=== PATIENT | female | born 1985 | race American Indian/Alaskan Native ===

== ENCOUNTER 2016-10-18 03:34 | Emergency (ER) | payer MEDICAID ==
[2016-10-18 03:44] VITALS: BP 156/114
[2016-10-18] MEDS ORDERED: TYLENOL PO ONE (03:45)
[2016-10-18] MEDS ORDERED: TYLENOL ONE (03:46)
[2016-10-18 04:09] LABS: Basophils % (Auto) 0.6 % (0.0-1.8); Eosinophils % (Auto) 2.3 % (0.0-4.3); Hematocrit 39.4 % (30.3-42.9); Hemoglobin 12.7 gm/dl (10.1-14.3); Mean Corpuscular HGB Conc 32 % (30-34); Mean Corpuscular Hemoglobin 25 pg (28-32); Mean Corpuscular Volume 78 fl (79-97); Platelet Count 306 K/mm3 (140-440); Red Blood Count 5.03 M/mm3 (3.65-5.03); Red Cell Distribution Width 17.7 % (13.2-15.2); White Blood Count 6.9 K/mm3 (4.5-11.0)
[2016-10-18 04:26] LABS: Alanine Aminotransferase 10 units/L (7-56); Albumin 4.4 g/dL (3.9-5); Albumin/Globulin Ratio 1.6 %; Alkaline Phosphatase 80 units/L (35-129); Anion Gap 21 mmol/L; Blood Urea Nitrogen 12 mg/dL (7-17); Calcium 9.4 mg/dL (8.4-10.2); Carbon Dioxide 24 mmol/L (22-30); Chloride 101.8 mmol/L (98-107); Glucose 111 mg/dL (65-100); Lipase 41 units/L (13-60); Potassium 4.3 mmol/L (3.6-5.0); Sodium 142 mmol/L (137-145); Total Protein 7.1 g/dL (6.3-8.2)
[2016-10-18 04:31] LABS: Bacteria,Urine 1+ /HPF (Negative); Bilirubin,Urine NEG (Negative); Blood,Urine MOD (Negative); Ketones,Urine NEG (Negative); Leukocyte Esterase,Urine SM (Negative); Mucus,Urine FEW /HPF; Nitrite,Urine NEG (Negative)
[2016-10-18] MEDS ORDERED: MORPHINE ONE (10:21)
[2016-10-18] MEDS ORDERED: ZOFRAN ONE (10:21)
--- NOTE | 2016-10-24 11:18 | ED Elopement Review ---
ED Pt Elopement review - Results review Lab results: Laboratory Tests 10/18/16 10/18/16 10/18/16 03:50 03:50 04:02 WBC 6.9 RBC 5.03 Hgb 12.7 Hct 39.4 MCV 78 L MCH 25 L MCHC 32 RDW 17.7 H Plt Count 306 Lymph % (Auto) 43.2 H [place] % (Auto) 5.8 Eos % (Auto) 2.3 Baso % (Auto) 0.6 Lymph # 3.0 [place] # 0.4 Eos # 0.2 Baso # 0.0 Seg Neutrophils % 48.1 Seg Neutrophils # 3.3 Sodium 142 Potassium 4.3 Chloride 101.8 Carbon Dioxide 24 Anion Gap 21 BUN 12 Creatinine 1.0 Estimated GFR > 60 BUN/Creatinine Ratio 12.00 Glucose 111 H Calcium 9.4 Total Bilirubin 0.30 AST 12 ALT 10 Alkaline Phosphatase 80 Total Protein 7.1 Albumin 4.4 Albumin/Globulin Ratio 1.6 Lipase 41 Urine Color Yellow Urine Turbidity Cloudy Urine pH 5.0 Ur Specific [place] 1.029 Urine Protein 30 mg/dl Urine Glucose (UA) Neg Urine Ketones Neg Urine Blood Mod Urine Nitrite Neg Urine Bilirubin Neg Urine Urobilinogen 2.0 Ur Leukocyte Esterase Sm Urine WBC (Auto) 14.0 H Urine RBC (Auto) 8.0 U Epithel Cells (Auto) 38.0 H Urine Bacteria (Auto) 1+ Calcium Oxalate Crystal 1+ Urine Mucus Few Urine HCG, Qual Negative - Call Back decision Pt Call Back Decision: No action required
== END 2016-10-18 07:58 | disposition left against medical advice (07) ==
LOC: ED 03:34
DX: R10.32 Left lower quadrant pain (principal); Z53.21 Procedure and treatment not carried out due to patient leaving prior to being seen by health care provider
CPT/HCPCS: 36415; 80053; 81001; 81025; 83690; 85025; J2270; J2405

== ENCOUNTER 2016-10-18 22:12 | Inpatient (IN) | payer MEDICAID, OTHER ==
[2016-10-18] MEDS ORDERED: DILAUDID ONE (22:22)
[2016-10-18] MEDS ORDERED: DILAUDID IV ONE (22:23)
[2016-10-18] MEDS ORDERED: NACL 0.9% 1000 ML 1,000 ML IV ONE (22:23)
--- NOTE | 2016-10-18 22:24 | Emergency Department Report ---
ED General Adult HPI - General Chief complaint: Abdominal Pain Stated complaint: ABD PAIN Time Seen by Provider: 10/18/16 22:19 Source: patient, EMS (verbal report received from EMS. ems notes not available at time of chart dictation), RN notes reviewed, old records reviewed Limitations: No Limitations - History of Present Illness Initial comments: This is a 31-year-old female. She is previously unknown to me. She presents to the ER with abdominal pain. Abdominal pain is epigastric, right upper quadrant, left upper quadrant. It is sharp. It increases with palpation. It decreases with rest. Patient admits to nausea and vomiting. Emesis is clear, nonbloody and nonbilious. Patient reports feeling constipated. Has a surgical history for . Denies irritative and obstructive urinary symptoms. There is no leg pain. There is no leg swelling. There is no chest pain. There is no shortness of breath. Does not take control tablets. No recent trips greater than 4 hours. No recent hospitalizations. The patient was initially quite distressed, was given 1 mg of hydromorphone, and this dramatically improved her pain. -: Gradual, hour(s) Location: abdomen Radiation: abdomen Quality: stabbing, aching Consistency: constant Improves with: medication Worsens with: movement Associated Symptoms: malaise, nausea/vomiting. denies: confusion, chest pain, cough - Related Data Home Medications Medication Instructions Recorded Confirmed Last Taken No Known Home Medications [No 10/18/16 10/18/16 Unknown Reported Home Medications] Allergies Allergy/AdvReac Type Severity Reaction Status Date / Time latex Allergy BLISTERS Verified 04/01/15 10:54 ED Review of Systems ROS: Stated complaint: ABD PAIN Other details as noted in HPI Constitutional: malaise Eyes: denies: vision change ENT: denies: epistaxis Respiratory: denies: cough Cardiovascular: denies: chest pain Gastrointestinal: abdominal pain, nausea Genitourinary: as per HPI Musculoskeletal: as per HPI Skin: as per HPI Neurological: as per HPI, weakness Psychiatric: anxiety ED Past Medical Hx - Past Medical History Hx Hypertension: No Hx Congestive Heart Failure: No Hx Diabetes: No Hx Deep Vein Thrombosis: No Hx Renal Disease: No Hx Sickle Cell Disease: No Hx Seizures: No Hx Kidney Stones: Yes (3 YRS AGO) Hx Asthma: No Hx COPD: No Hx HIV: No Additional medical history: hemorrhoids - Surgical History Additional Surgical History: hemorrhoids removed - Social History Smoking Status: Never Smoker Substance Use Type: None - Medications Home Medications: Home Medications Medication Instructions Recorded Confirmed Last Taken Type No Known Home Medications [No 10/18/16 10/18/16 Unknown History Reported Home Medications] ED Physical Exam - General General appearance: alert, in distress, obese - Head Head exam: Present: atraumatic, normocephalic - Eye Eye exam: Present: normal appearance, EOMI. Absent: nystagmus - ENT ENT exam: Present: normal exam, normal orophraynx, mucous membranes moist, normal external ear exam - Neck Neck exam: Present: normal inspection, full ROM. Absent: tenderness, meningismus - Respiratory Respiratory exam: Present: normal lung sounds bilaterally. Absent: respiratory distress, wheezes, rales, rhonchi, stridor, chest wall tenderness, accessory muscle use, decreased breath sounds, prolonged expiratory - Cardiovascular Cardiovascular Exam: Present: regular rate, normal rhythm, normal heart sounds. Absent: bradycardia, tachycardia, irregular rhythm, systolic murmur, diastolic murmur, rubs, gallop - GI/Abdominal GI/Abdominal exam: Present: soft, tenderness, normal bowel sounds. Absent: distended, guarding, rebound, rigid, pulsatile mass - Extremities Exam Extremities exam: Present: normal inspection, full ROM, normal capillary refill. Absent: tenderness, pedal edema, joint swelling, calf tenderness - Back Exam Back exam: Present: normal inspection, full ROM. Absent: tenderness, CVA tenderness (R), CVA tenderness (L), muscle spasm, paraspinal tenderness, vertebral tenderness - Neurological Exam Neurological exam: Present: alert, oriented X3, normal gait, other (Extraocular movements intact. Tongue midline. No facial droop. Facial sensation intact to light touch in the V1, V2, V3 distribution bilaterally. 5 and 5 strength in 4 extremities.. Sensation is intact to light touch in 4 extremities.). Absent : motor sensory deficit - Psychiatric Psychiatric exam: Present: anxious - Skin Skin exam: Present: warm, dry, intact, normal color. Absent: rash ED Course Vital Signs 10/18/16 10/18/16 10/18/16 22:14 22:20 22:23 Temperature 98.9 F Pulse Rate 103 H 86 96 H Respiratory 20 13 20 Rate Blood Pressure 178/101 178/101 Blood Pressure [Right] O2 Sat by Pulse 100 100 100 Oximetry 10/18/16 10/18/16 10/18/16 22:30 22:40 22:54 Temperature Pulse Rate 86 80 69 Respiratory 9 L 16 12 Rate Blood Pressure 146/97 178/101 141/82 Blood Pressure [Right] O2 Sat by Pulse 100 100 100 Oximetry 10/18/16 10/18/16 10/18/16 23:00 23:10 23:20 Temperature Pulse Rate 61 62 96 H Respiratory 18 16 15 Rate Blood Pressure 138/78 138/78 133/76 Blood Pressure [Right] O2 Sat by Pulse 98 98 100 Oximetry 10/18/16 10/19/16 10/19/16 23:30 00:48 01:59 Temperature Pulse Rate 53 L 64 89 Respiratory 18 14 12 Rate Blood Pressure 137/77 Blood Pressure 131/76 135/89 [Right] O2 Sat by Pulse 99 100 100 Oximetry 10/19/16 02:50 Temperature Pulse Rate 65 Respiratory 12 Rate Blood Pressure Blood Pressure 137/89 [Right] O2 Sat by Pulse 100 Oximetry - Reevaluation(s) Reevaluation #1: 10/18/16 23:24 Differential diagnosis: GERD, gastritis, pancreatitis, perforated viscus, urinary tract infection, pneumonia, constipation Assessment and plan: 31-year-old female with upper abdominal pain. Initially quite distress, improved with hydromorphone. Laboratory studies are unremarkable, very mild hypokalemia appreciated, patient walking with a steady gait, tolerating liquid feeds. My bedside ultrasound does not demonstrate any obvious biliary abnormality. CT scan of the abdomen and pelvis is pending. Patient reports she is not . X-ray of the chest and x-rays no subdiaphragmatic free air. There are no pulmonary embolus or DVT risk factors, the patient is low risk by well's criteria, and she is perc negative Reevaluation #2: 10/19/16 01:47 CT scan is reviewed. No obvious etiology of patient's abdominal pain is noted. The patient had a benign gynecologic examination. There is no adnexal tenderness, no lower abdominal tenderness, and no uterine tenderness. During the gynecologic examination, I am escorted by nurse ALLYN GUADALUPE. Therefore don't think the patient's pain is coming from her intrauterine device. The case is discussed with the general surgeon on-call, Dr. Bejarano, who recommended a lactic acid which is ordered. 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 Urinalysis is equivocal. Given her persistent tenderness, requirements for multiple doses of IV pain medication, hypokalemia, hypomagnesemia, I will admit the patient for serial abdominal exams, pain control, antibiotics, and further inpatient evaluation and management. The case is discussed with the Hospital physician, Dr. Royal, who accepts the patient to her service. ED Medical Decision Making - Lab Data Result diagrams: 10/18/16 22:39 10/18/16 22:39 Vital Signs 10/18/16 22:23 Temperature 98.9 F Pulse Rate 96 H Respiratory 20 Rate Blood Pressure 178/101 O2 Sat by Pulse 100 Oximetry Lab Results 10/18/16 10/18/16 10/18/16 Range/Units 22:39 22:39 22:39 WBC 6.3 (4.5-11.0) K/mm3 RBC 4.52 (3.65-5.03) M/mm3 Hgb 11.5 (10.1-14.3) gm/dl Hct 35.1 (30.3-42.9) % MCV 78 L (79-97) fl MCH 25 L (28-32) pg MCHC 33 (30-34) % RDW 17.6 H (13.2-15.2) % Plt Count 264 (140-440) K/mm3 Lymph % (Auto) 29.9 (13.4-35.0) % Andrew % (Auto) 5.7 (0.0-7.3) % Eos % (Auto) 1.0 (0.0-4.3) % Baso % (Auto) 0.4 (0.0-1.8) % Lymph # 1.9 (1.2-5.4) K/mm3 Andrew # 0.4 (0.0-0.8) K/mm3 Eos # 0.1 (0.0-0.4) K/mm3 Baso # 0.0 (0.0-0.1) K/mm3 Seg Neutrophils % 63.0 (40.0-70.0) % Seg Neutrophils # 3.9 (1.8-7.7) K/mm3 Sodium 143 (137-145) mmol/L Potassium 3.4 L D (3.6-5.0) mmol/L Chloride 104.2 (98-107) mmol/L Carbon Dioxide 24 (22-30) mmol/L Anion Gap 18 mmol/L BUN 12 (7-17) mg/dL Creatinine 1.0 (0.7-1.2) mg/dL Estimated GFR > 60 ml/min BUN/Creatinine Ratio 12.00 % Glucose 95 (65-100) mg/dL Calcium 8.6 (8.4-10.2) mg/dL Total Bilirubin 0.50 (0.1-1.2) mg/dL AST 10 (5-40) units/L ALT 9 (7-56) units/L Alkaline Phosphatase 61 (35-129) units/L Total Protein 6.5 (6.3-8.2) g/dL Albumin 3.9 (3.9-5) g/dL Albumin/Globulin Ratio 1.5 % Lipase 44 (13-60) units/L HCG, Qual Negative (Negative) Urine Bilirubin (Negative) Urine RBC (Auto) (0.0-6.0) /HPF U Epithel Cells (Auto) (0-13.0) /HPF /06/05 Range/Units 22:53 WBC (4.5-11.0) K/mm3 RBC (3.65-5.03) M/mm3 Hgb (10.1-14.3) gm/dl Hct (30.3-42.9) % MCV (79-97) fl MCH (28-32) pg MCHC (30-34) % RDW (13.2-15.2) % Plt Count (140-440) K/mm3 Lymph % (Auto) (13.4-35.0) % Andrew % (Auto) (0.0-7.3) % Eos % (Auto) (0.0-4.3) % Baso % (Auto) (0.0-1.8) % Lymph # (1.2-5.4) K/mm3 Andrew # (0.0-0.8) K/mm3 Eos # (0.0-0.4) K/mm3 Baso # (0.0-0.1) K/mm3 Seg Neutrophils % (40.0-70.0) % Seg Neutrophils # (1.8-7.7) K/mm3 Sodium (137-145) mmol/L Potassium (3.6-5.0) mmol/L Chloride (98-107) mmol/L Carbon Dioxide (22-30) mmol/L Anion Gap mmol/L BUN (7-17) mg/dL Creatinine (0.7-1.2) mg/dL Estimated GFR ml/min BUN/Creatinine Ratio % Glucose (65-100) mg/dL Calcium (8.4-10.2) mg/dL Total Bilirubin (0.1-1.2) mg/dL AST (5-40) units/L ALT (7-56) units/L Alkaline Phosphatase (35-129) units/L Total Protein (6.3-8.2) g/dL Albumin (3.9-5) g/dL Albumin/Globulin Ratio % Lipase (13-60) units/L HCG, Qual (Negative) Urine Bilirubin Neg (Negative) Urine RBC (Auto) 4.0 (0.0-6.0) /HPF U Epithel Cells (Auto) 7.0 (0-13.0) /HPF - Radiology Data Radiology results: report reviewed, image reviewed interpreted by me: Portable x-ray the chest is negative for free air. Critical care attestation.: If time is entered above; I have spent that time in minutes in the direct care of this critically ill patient, excluding procedure time. ED Disposition Clinical Impression: Abdominal pain, Hypomagnesemia, Hypokalemia Disposition: OP ADMITTED IP TO THIS HOSP Is pt being admited?: Yes Condition: Good
[2016-10-18 22:53] LABS: Basophils % (Auto) 0.4 % (0.0-1.8); Hematocrit 35.1 % (30.3-42.9); Hemoglobin 11.5 gm/dl (10.1-14.3); Mean Corpuscular HGB Conc 33 % (30-34); Mean Corpuscular Volume 78 fl (79-97); Platelet Count 264 K/mm3 (140-440); Red Blood Count 4.52 M/mm3 (3.65-5.03); Red Cell Distribution Width 17.6 % (13.2-15.2); White Blood Count 6.3 K/mm3 (4.5-11.0)
[2016-10-18 22:54] LABS: Mean Corpuscular Hemoglobin 25 pg (28-32)
[2016-10-18 23:14] LABS: Alanine Aminotransferase 9 units/L (7-56); Albumin 3.9 g/dL (3.9-5); Albumin/Globulin Ratio 1.5 %; Alkaline Phosphatase 61 units/L (35-129); Anion Gap 18 mmol/L; Blood Urea Nitrogen 12 mg/dL (7-17); Calcium 8.6 mg/dL (8.4-10.2); Carbon Dioxide 24 mmol/L (22-30); Chloride 104.2 mmol/L (98-107); Glucose 95 mg/dL (65-100); Lipase 44 units/L (13-60); Potassium 3.4 mmol/L (3.6-5.0); Sodium 143 mmol/L (137-145); Total Protein 6.5 g/dL (6.3-8.2)
[2016-10-18] MEDS ORDERED: NACL ONE (23:16)
[2016-10-18] MEDS ORDERED: K-DUR PO ONE (23:21)
[2016-10-18 23:24] LABS: Bilirubin,Urine NEG (Negative); Blood,Urine NEG (Negative); Ketones,Urine TR mg/dL (Negative); Leukocyte Esterase,Urine SM (Negative); Mucus,Urine 1+ /HPF; Nitrite,Urine NEG (Negative); Uric Acid Crystals,Urine 1+
[2016-10-19] MEDS ORDERED: MAGNESIUM SULFATE 2GM/50ML 2 GM/50 ML BAG IV ONE (00:35)
--- NOTE | 2016-10-19 00:48 | Cat Scan Report ---
FINAL REPORT EXAM: CT ABDOMEN PELVIS W CON HISTORY: abdominal pain EPIGASTRIC TECHNIQUE: CT images are acquired through the Abdomen and Pelvis following intravenous administration of contrast. Transaxial, coronal and sagittal reformations are provided. PRIORS: None FINDINGS: Partially visualized intrathoracic contents are unremarkable. The liver, gallbladder, pancreas, spleen, and adrenal glands are normal. Kidneys show no worrisome lesions, hydronephrosis, or calculi. Urinary bladder is unremarkable Small and large bowel are normal in caliber. Appendix is normal. There is fluid within the ascending and transverse colon. No pericolonic stranding or edema. No free air, free fluid, or lymphadenopathy identified. Aorta is normal in course and caliber. Anteverted uterus containing a dense contraceptive device, which extends to the edge of the myometrium/serosa on axial series 3, image 154. Superficial soft tissues are unremarkable. No acute or aggressive appearing skeletal findings. IMPRESSION: Fluid in the colon may be infectious or inflammatory in etiology. No pneumoperitoneum or focal fluid collection to suggest abscess formation. A component of patient's IUD extends through the myometrium to the edge of the uterus, which may be clinically significant in the setting of pelvic pain and/or at the time of removal.
[2016-10-19] MEDS ORDERED: ZOSYN/NS 4.5GM/100ML 4.5 GM/100 ML VIAL IV ONE (01:46)
[2016-10-19] MEDS ORDERED: DILAUDID IV ONE (01:46)
--- NOTE | 2016-10-19 02:46 | Admit Criteria Form ---
Admission Criteria Documentation: ABDOMINAL PAIN Clinical Indications for Admission to Inpatient Care (Place 'X' for any and all applicable criteria): Admission is indicated for ANY ONE of the following(1)(2)(3)(4)(5): [ X]I. Inpatient admission required rather than observation care (Also use Abdominal Pain: Observation Care, as appropriate) because of ANY ONE of the following: [ ]a) Severe pain requiring acute inpatient management [X ]b) Identification of etiology/finding that requires inpatient care (eg, aortic dissection, free air) [ ]c) Absent bowel sounds with complete ileus(6) [ ]d) Suspected toxic megacolon [ ]e) Severe electrolyte abnormalities requiring inpatient care [ ]f) High fever or infection requiring inpatient admission as indicated by ANY ONE of following(7)(8): [ ] i) Appropriate outpatient or observational care antimicrobial treatment unavailable, not effective, or not feasible [ ] ii) Documented bacteremia [ ] iii) Temperature > 104.9 degrees F (oral) [ ] iv) T >103.1 F (oral) or < 96.8 F(rectal) that does not respond to all emergency treatment measures [ ]g) Signs of intestinal obstruction [B] [ ]h) Hemodynamic instability [ ]i) IV fluid to replace significant ongoing losses (greater than 3 L/m2 per day) (12)(13) [ ]j) Percutaneous or open drainage (eg, abscess, biliary tract ) procedures [ ]k) Parenteral nutrition regimen that must be implemented on inpatient basis [ ]l) Other condition,treatment or monitoring requiring inpatient admission. [ ]II. Peritoneal signs present [ ]III. Surgery needed that cannot be performed on an ambulatory basis. [ ]IV. Evaluation requires patient to not eat or drink for extended period ( eg, more than 24 hours). [ ]V. Contraindications and/or Inappropriate clinical situations for Observational Care in patients with abdominal pain, when ANY ONE of the following is required: [ ]a) Thorough evaluation is required to prevent catastrophic events due to delays in diagnosing (e.g.Mesenteric ischemia) 1,3 [ ]b) Patient with severe pathology or with chronic symptoms unlikely to improve in the ED stay (3) [ ]. General contraindications and/or Inappropriate clinical situations for Observational Care in patients with abdominal pain, when ANY ONE of the following is required: [ ]a) Prediction of prolongation of LOS based on ANY ONE of the following may be considered as a contraindication for observational care 2, 3, 4, 5, 6, 7, 8, 9, 10, 11 [ ]i) Age > 65 yrs. [ ]ii) Patient arriving by ambulance [ ]iii) Patient with high acuity [ ]iv) Patient requiring vital sign monitoring [ ]v) Patient on IV medication [ ]b) Systolic blood pressures 180mmHg 3,12 [ ]c) Patient with altered mental status including delirium and other alteration of consciousness, (3) [ ]d) Patient whose discharge disposition will be to a usp home or rehabilitation home should not be managed in Emergency Department Observation Unit. CMS rule requires 3 days hospital stay before such placement.3,13 [ ]e) Patient with failure to thrive due to broad array of etiologies 3,16,17 [ ]f) Inability to ambulate 3,14 Extended stay beyond goal length of stay may be needed for(2)(3): [ ]a) Persistent abdominal pain with suspected intra-abdominal process [ ]b) Diagnosed condition requiring continued stay (e.g., pancreatitis, complicated diverticulitis) [ ]c) Surgery (e.g., colectomy) The original [facility] content created by Alma Johns has been revised. The portions of the content which have been revised are identified through the use of italic text or in bold, and [facility] has neither reviewed nor approved the modified material.All other unmodified content is copyright [facility] [employer]. Please see references footnoted in the original [facility] edition 2016 Admission Criteria Met: Yes
[2016-10-19] MEDS ORDERED: AMBIEN PO PRN (04:50)
[2016-10-19] MEDS ORDERED: MILK OF MAGNESIA PO PRN (04:50)
[2016-10-19] MEDS ORDERED: ZOFRAN IV PRN (04:50)
[2016-10-19] MEDS ORDERED: TYLENOL PO PRN (04:50)
[2016-10-19] MEDS ORDERED: NORCO 5/325 PO PRN (04:50)
[2016-10-19] MEDS ORDERED: DULCOLAX PR PRN (04:50)
--- NOTE | 2016-10-19 04:59 | History and Physical Report ---
History of Present Illness Date of examination: 10/19/16 Date of admission: 10/19/16 01:50 Chief complaint: Abdominal pain with nausea and vomiting History of present illness: This is a 31-year-old female presents to the ER with abdominal pain after eating a burger at [employer]. Abdominal pain is epigastric, right upper quadrant, left upper quadrant. It is sharp. It increases with palpation. It decreases with rest. Patient admits to nausea and vomiting. Emesis is clear, nonbloody and nonbilious. Patient reports feeling constipated. Has a surgical history for . Denies irritative and obstructive urinary symptoms. Past medical History: None. IUD placement one year ago. Past surgical History: s/p Social History: Lives with family, denies any smoking, drinking and elicit drug abuse. Family History: None Review of System: Constitutional: no fever, no chills, no weight loss Ears, eyes, nose, mouth and throat: no nasal congestion, no nasal discharge, no sinus pressure, no vision change, no red eye. Neck: No neck pain or rigidity. Cardiovascular: No chest pain, no orthopnea, no palpitations, no leg swelling Respiratory: No shortness of breath, no cough, no congestion, no wheezing Gastrointestinal: + abdominal pain, nausea and vomiting Genitourinary : no dysuria, no hematuria Musculoskeletal: no joint swelling or muscle ache Integumentary: no rash, no pruritis Neurological: no parathesias, no numbness, no tingling Endocrine: no cold or heat intolerance, no polyuria or polydipsia Hematologic/Lymphatic: no easy bruising, no easy bleeding, no gland swelling Allergic/Immunologic: no urticaria, no angioedema. Medications and Allergies Allergies Allergy/AdvReac Type Severity Reaction Status Date / Time latex Allergy BLISTERS Verified 04/01/15 10:54 Home Medications Medication Instructions Recorded Confirmed Last Taken Type No Known Home Medications [No 10/18/16 10/18/16 Unknown History Reported Home Medications] Active Meds: Active Medications Acetaminophen (Tylenol) 650 mg PO Q4H PRN PRN Reason: Pain MILD(1-3)/Fever >100.5/SHIN Acetaminophen/Hydrocodone Bitart (Rodanthe 5/325) 2 each PO Q6H PRN PRN Reason: Pain, Moderate (4-6) Bisacodyl (Dulcolax) 10 mg ME QDAY PRN PRN Reason: Constipation unrelieved by MOM Docusate Sodium (Colace) 100 mg PO BID WALDEMAR Famotidine (Pepcid) 20 mg PO BID WALDEMAR Sodium Chloride (Nacl 0.9% 1000 Ml) 1,000 mls @ 100 mls/hr IV DIRECT WALDEMAR Levofloxacin/Dextrose (Levaquin 750mg/150ml) 750 mg in 150 mls @ 100 mls/hr IV Q24HR WALDEMAR PRN Reason: Protocol Magnesium Hydroxide (Milk Of Magnesia) 30 ml PO Q4H PRN PRN Reason: Constipation Metoclopramide HCl (Reglan) 10 mg IV Q6H PRN PRN Reason: Nausea And Vomiting Morphine Sulfate (Morphine) 2 mg IV Q4H PRN PRN Reason: Pain, Moderate (4-6) Ondansetron HCl (Zofran) 4 mg IV Q8H PRN PRN Reason: N/V unrelieved by Reglan Zolpidem Tartrate (Ambien) 5 mg PO QHS PRN PRN Reason: Insomnia Exam - Physical Exam Narrative exam: GENERAL: This is well-developed well-nourished lying on bed appeared to be in no discomfort. HEENT: Normocephalic. Atraumatic. Extraocular motions are intact. No conjunctival congestion or icterus. Patient has moist mucous membranes. External auditory canal and nares patent bilaterally. NECK: Supple. Trachea midline. No JVD, thyromagaly or lymphadenopathy. CHEST/LUNGS: Clear to auscultated bilaterally. There is no respiratory distress noted, breathing nonlabored. No wheezes crackles or rhonchi. HEART/CARDIOVASCULAR: Regular in rate and rhythm. PMI at the apex. There is no gallop rub or murmur. ABDOMEN: Abdomen is soft, nontender. Patient has normal bowel sounds. There is no abdominal distention. No organomagaly or rigidity. SKIN: There is no rash, no erythrema. There is no diaphoresis. Warm and dry. NEUROLOGY: The patient is awake, alert, and oriented. The patient is cooperative. The patient has normal speech. No focal motor deficit. MUSCULOSKELETAL: No joint effusion or tenderness. Muscle strength equal bilaterally. No muscle wasting. EXTRIMITY: No edema, cyanosis or clubbing. PSYCH: No depression or anxiety noted. Cooperative. - Constitutional Vitals: Temp Pulse Resp BP Pulse Ox 98.9 F 65 12 137/89 100 10/18/16 22:23 10/19/16 02:50 10/19/16 02:50 10/19/16 02:50 10/19/16 02:50 Results - Labs CBC & Chem 7: 10/18/16 22:39 10/19/16 06:22 - Imaging and Cardiology CT scan - abdomen: report reviewed Assessment and Plan Acute abdominal pain - Likely due to gastroenteritis or colitis - Placed on Levaquin -Will treat her with as needed nausea and pain medicine Nausea and vomiting - Likely from gastroenteritis - treat with when necessary Zofran Hypokalemia - Likely due to GI loss - Replaced in the ER we'll continue to monitor DVT prophylaxis - Placed on Lovenox It took me about 41 minutes for initial care of this patient including history and physical, reviewing initial lab results and ER documents, placing admission orders, bedside counseling and coordination of care.
[2016-10-19] MEDS: NACL 0.9% 1000 ML 1,000 ML IV SCH ×2 (05:26→17:14)
[2016-10-19] MEDS: REGLAN IV PRN ×2 (05:27→17:14)
[2016-10-19] MEDS: MORPHINE IV PRN ×2 (05:27→17:14)
[2016-10-19 07:08] LABS: Anion Gap 15 mmol/L; BUN/Creatinine Ratio 12.22; Blood Urea Nitrogen 11 mg/dL (7-17); Calcium 8.4 mg/dL (8.4-10.2); Carbon Dioxide 25 mmol/L (22-30); Chloride 108.2 mmol/L (98-107); Glucose 115 mg/dL (65-100); Potassium 3.9 mmol/L (3.6-5.0); Sodium 144 mmol/L (137-145)
[2016-10-19] MEDS ORDERED: MAGNESIUM SULFATE IV ONE (08:33)
[2016-10-19] MEDS ORDERED: MAGNESIUM SULFATE 1 GM in NACL 0.9% 50 ML IV ONE (09:00)
[2016-10-19] MEDS: LEVAQUIN 750MG/150ML 750 MG/150 ML BAG IV SCH (09:06)
[2016-10-19] MEDS: COLACE PO SCH ×2 (09:06→22:17)
[2016-10-19] MEDS: PEPCID PO SCH ×2 (09:06→22:17)
--- NOTE | 2016-10-19 09:22 | Event Note ---
Date: 10/19/16 This is apparently a patient of Dr. Arielle Castellanos who is credential here. Please contact her office and notify her of the consult thank you
--- NOTE | 2016-10-19 09:36 | XRay Report ---
PORTABLE CHEST INDICATION: Abdominal pain. Evaluate for free air. COMPARISON: None similar. FINDINGS: Portable, frontal chest radiograph demonstrates normal cardiomediastinal silhouette. Slightly crowded markings centrally. Lungs otherwise clear without pleural effusions or CHF. EKG leads. Unremarkable bones. CONCLUSION: No acute disease. Thank you for the opportunity to participate in this patient's care.
--- NOTE | 2016-10-19 10:02 | Progress Note ---
Assessment and Plan Assessment and plan: Patient is 31-year-old woman who presented with epigastric abdominal pain with nausea and vomiting. CT abdomen and pelvis with contrast shows fluid in the colon may be infectious or inflammatory in etiology, no abscess formation. A component of the patient's IUD extends through the myometrium to the areas of the uterus, which may be clinically significant in the settings of pelvic pain and/or at the time of removal. Chest x-ray negative for acute findings. -Epigastric abdominal pain with nausea and vomiting suspect component of gastritis, treated as colitis (?epigastric area) with antibiotics in ED: Add PPI , downgrade diet to clears, consulted GI -IUD through myometrium: Consulted WELDER -Electrolyte imbalances, hypokalemia and hypomagnesemia, replaced: Recheck a.m. -UTI: Order urine culture, antibiotics -Morbid obesity BMI 40.7: Lifestyle modification discussed -DVT prophylaxis: SCDs and added subcutaneous heparin History Interval history: Patient seen and examined. Follow up on abdominal pain which is still present. Overnight she did have nausea vomiting but she tolerated her breakfast this morning. Overnight uneventful. No cp, sob, or severe headaches. Imaging, old records, testing, labs, nursing notes reviewed. Hospitalist Physical - Physical exam Narrative exam: GEN: WDWN, NAD, AWAKE, ALERT, ORIENTATED 3 BMI 40.7 HEENT: NCAT, PERRL, EOMI, OP CLEAR NECK: SUPPLE, NO THYROMEGALY, NO JVD, NO LAD CVS: RRR, NORMAL S1S2 LUNGS/CHEST: CTA B, NORMAL CHEST EXPANSION B, GOOD AIR ENTRY B ABD: SOFT, EPIGASTRIC TENDERNESS, NONDISTENDED GBS, NO REBOUND OR GUARDING EXT/SKIN: NO SIGNIFICANT EDEMA OR RASH MSK: FROM X 4 EXTREMITIES NEURO: CN 2-12 GROSSLY INTACT, NO FOCAL DEFICITS PSY: CALM - Constitutional Vitals: Temp Pulse Resp BP Pulse Ox 98 F 78 16 132/82 97 10/19/16 07:49 10/19/16 07:49 10/19/16 07:49 10/19/16 07:49 10/19/16 07:49 Results - Labs CBC & Chem 7: 10/18/16 22:39 10/19/16 06:22 Labs: Laboratory Last Values WBC 6.3 K/mm3 (4.5-11.0) 10/18/16 22:39 RBC 4.52 M/mm3 (3.65-5.03) 10/18/16 22:39 Hgb 11.5 gm/dl (10.1-14.3) 10/18/16 22:39 Hct 35.1 % (30.3-42.9) 10/18/16 22:39 MCV 78 fl (79-97) L 10/18/16 22:39 MCH 25 pg (28-32) L 10/18/16 22:39 MCHC 33 % (30-34) 10/18/16 22:39 RDW 17.6 % (13.2-15.2) H 10/18/16 22:39 Plt Count 264 K/mm3 (140-440) 10/18/16 22:39 Lymph % (Auto) 29.9 % (13.4-35.0) 10/18/16 22:39 [place] % (Auto) 5.7 % (0.0-7.3) 10/18/16 22:39 Eos % (Auto) 1.0 % (0.0-4.3) 10/18/16 22:39 Baso % (Auto) 0.4 % (0.0-1.8) 10/18/16 22:39 Lymph # 1.9 K/mm3 (1.2-5.4) 10/18/16 22:39 [place] # 0.4 K/mm3 (0.0-0.8) 10/18/16 22:39 Eos # 0.1 K/mm3 (0.0-0.4) 10/18/16 22:39 Baso # 0.0 K/mm3 (0.0-0.1) 10/18/16 22:39 Seg Neutrophils % 63.0 % (40.0-70.0) 10/18/16 22:39 Seg Neutrophils # 3.9 K/mm3 (1.8-7.7) 10/18/16 22:39 Sodium 144 mmol/L (137-145) 10/19/16 06:22 Potassium 3.9 mmol/L (3.6-5.0) 10/19/16 06:22 Chloride 108.2 mmol/L (98-107) H 10/19/16 06:22 Carbon Dioxide 25 mmol/L (22-30) 10/19/16 06:22 Anion Gap 15 mmol/L 10/19/16 06:22 BUN 11 mg/dL (7-17) 10/19/16 06:22 Creatinine 0.9 mg/dL (0.7-1.2) 10/19/16 06:22 Estimated GFR > 60 ml/min 10/19/16 06:22 BUN/Creatinine Ratio 12.22 % 10/19/16 06:22 Glucose 115 mg/dL (65-100) H 10/19/16 06:22 Lactic Acid 0.90 mmol/L (0.7-2.0) 10/19/16 01:48 Calcium 8.4 mg/dL (8.4-10.2) 10/19/16 06:22 Magnesium 1.50 mg/dL (1.7-2.3) L 10/18/16 23:45 Total Bilirubin 0.50 mg/dL (0.1-1.2) 10/18/16 22:39 AST 10 units/L (5-40) 10/18/16 22:39 ALT 9 units/L (7-56) 10/18/16 22:39 Alkaline Phosphatase 61 units/L (35-129) 10/18/16 22:39 Total Protein 6.5 g/dL (6.3-8.2) 10/18/16 22:39 Albumin 3.9 g/dL (3.9-5) 10/18/16 22:39 Albumin/Globulin Ratio 1.5 % 10/18/16 22:39 Lipase 44 units/L (13-60) 10/18/16 22:39 HCG, Qual Negative (Negative) 10/18/16 22:39 Urine Color Yellow (Yellow) 10/18/16 22:53 Urine Turbidity Clear (Clear) 10/18/16 22:53 Urine pH 5.0 (5.0-7.0) 10/18/16 22:53 Ur Specific [place] 1.031 (1.003-1.030) H 10/18/16 22:53 Urine Protein 30 mg/dl mg/dL (Negative) 10/18/16 22:53 Urine Glucose (UA) Neg mg/dL (Negative) 10/18/16 22:53 Urine Ketones Tr mg/dL (Negative) 10/18/16 22:53 Urine Blood Neg (Negative) 10/18/16 22:53 Urine Nitrite Neg (Negative) 10/18/16 22:53 Urine Bilirubin Neg (Negative) 10/18/16 22:53 Urine Urobilinogen 2.0 mg/dL (<2.0) 10/18/16 22:53 Ur Leukocyte Esterase Sm (Negative) 10/18/16 22:53 Urine WBC (Auto) 21.0 /HPF (0.0-6.0) H 10/18/16 22:53 Urine RBC (Auto) 4.0 /HPF (0.0-6.0) 10/18/16 22:53 U Epithel Cells (Auto) 7.0 /HPF (0-13.0) 10/18/16 22:53 Uric Acid Crystals 1+ 10/18/16 22:53 Urine Mucus 1+ /HPF 10/18/16 22:53
--- NOTE | 2016-10-19 11:42 | Gastroenterology Consultation ---
History of Present Illness - Reason for Consult Consult date: 10/19/16 Requesting physician: AVIVA BRAVO - History of Present Illness Patient is a 31 y/o female admitted with abd pain, N/V, and diarrhea x 2 days. She reports symptoms started after eating at [employer] on . Pt c/o epigastric pain with nausea w/vomiting today. Reports no BM today. Denies vomiting, hematemesis, melena, fever, chills, night sweats, or hematochezia. No NSAID or recent abx use. No personal or family hx of IBD. No significant PMH. Past History Past Surgical History: , Other (IUD placement) Social history: denies: smoking, alcohol abuse Medications and Allergies Allergies Allergy/AdvReac Type Severity Reaction Status Date / Time latex Allergy BLISTERS Verified 04/01/15 10:54 Home Medications Medication Instructions Recorded Confirmed Last Taken Type No Known Home Medications [No 10/18/16 10/18/16 Unknown History Reported Home Medications] Active Meds: Active Medications Acetaminophen (Tylenol) 650 mg PO Q4H PRN PRN Reason: Pain MILD(1-3)/Fever >100.5/SHIN Acetaminophen/Hydrocodone Bitart ([place] 5/325) 2 each PO Q6H PRN PRN Reason: Pain, Moderate (4-6) Last Admin: 10/19/16 10:49 Dose: 2 each Bisacodyl (Dulcolax) 10 mg WA QDAY PRN PRN Reason: Constipation unrelieved by MOM Docusate Sodium (Colace) 100 mg PO BID [facility] Last Admin: 10/19/16 09:06 Dose: 100 mg Famotidine (Pepcid) 20 mg PO BID [facility] Last Admin: 10/19/16 09:06 Dose: 20 mg Heparin Sodium (Porcine) (Heparin) 5,000 unit SUB-Q Q12HR [facility] Sodium Chloride (Nacl 0.9% 1000 Ml) 1,000 mls @ 100 mls/hr IV DIRECT [facility] Last Admin: 10/19/16 05:26 Dose: 100 mls/hr Levofloxacin/Dextrose (Levaquin 750mg/150ml) 750 mg in 150 mls @ 100 mls/hr IV Q24HR WALDEMAR PRN Reason: Protocol Last Admin: 10/19/16 09:06 Dose: 100 mls/hr Magnesium Hydroxide (Milk Of Magnesia) 30 ml PO Q4H PRN PRN Reason: Constipation Metoclopramide HCl (Reglan) 10 mg IV Q6H PRN PRN Reason: Nausea And Vomiting Last Admin: 10/19/16 05:27 Dose: 10 mg Morphine Sulfate (Morphine) 2 mg IV Q4H PRN PRN Reason: Pain, Moderate (4-6) Last Admin: 10/19/16 05:27 Dose: 2 mg Ondansetron HCl (Zofran) 4 mg IV Q8H PRN PRN Reason: N/V unrelieved by Reglan Pantoprazole Sodium (Protonix) 40 mg PO QDAY [facility]AL[facility] Zolpidem Tartrate (Ambien) 5 mg PO QHS PRN PRN Reason: Insomnia Review of Systems - Review of Systems All systems: negative Gastrointestinal: abdominal pain (epigastric), nausea, vomiting, diarrhea Exam - Constitutional Vital Signs: Temp Pulse Resp BP Pulse Ox 98 F 78 16 132/82 97 10/19/16 07:49 10/19/16 07:49 10/19/16 07:49 10/19/16 07:49 10/19/16 07:49 General appearance: no acute distress, obese - EENT Eyes: PERRL, EOM intact ENT: hearing intact - Neck Neck: supple, normal ROM - Respiratory Respiratory: bilateral: CTA - Cardiovascular Rhythm: regular Heart Sounds: Present: S1 & S2 Extremities: No edema - Gastrointestinal General gastrointestinal: Present: soft, tender (epigastric), non-distended, normal bowel sounds - Integumentary Integumentary: Present: warm, dry - Neurologic Neurological: alert and oriented x3 - Psychiatric Psychiatric: appropriate mood/affect, cooperative - Labs CBC & Chem 7: 10/18/16 22:39 10/19/16 06:22 Lab Results: Laboratory Results - last 24 hr 10/19/16 06:22 Sodium 144 Potassium 3.9 Chloride 108.2 H Carbon Dioxide 25 Anion Gap 15 BUN 11 Creatinine 0.9 Estimated GFR > 60 BUN/Creatinine Ratio 12.22 Glucose 115 H Calcium 8.4 Assessment and Plan 1. colitis 2. N/V 3. epigastric pain 4. diarrhea -CT scan revealed fluid in ascending and transverse colon- no wall thickening -symptoms most likely secondary to infectious process -WBC 6.3 -afebrile -continue supportive care -clear liquid diet -Will add Flagyl and order stool studies -will follow
[2016-10-19] MEDS: PROTONIX PO SCH (11:50)
[2016-10-19] MEDS: FLAGYL 500 MG/100 ML 500 MG/100 ML BAG IV SCH ×2 (13:50→22:20)
--- NOTE | 2016-10-19 16:33 | Event Note ---
Date: 10/19/16 Contacted to evaluate patient for abdominal pain. Findings of a suspected embedded IUD on CT scan. Patient denies any abnormal vaginal bleeding or discharge. Her IUD has been in place for a year without complications. She describes epigastric symptoms. Patient's symptoms likely not related to her IUD. Patient can followup in the office as needed.
[2016-10-20] MEDS: NACL 0.9% 1000 ML 1,000 ML IV SCH (04:42)
[2016-10-20] MEDS: FLAGYL 500 MG/100 ML 500 MG/100 ML BAG IV SCH (05:16)
[2016-10-20 06:51] LABS: Hematocrit 32.6 % (30.3-42.9); Hemoglobin 10.7 gm/dl (10.1-14.3); Mean Corpuscular HGB Conc 33 % (30-34); Mean Corpuscular Volume 78 fl (79-97); Platelet Count 239 K/mm3 (140-440); Red Blood Count 4.21 M/mm3 (3.65-5.03); White Blood Count 4.8 K/mm3 (4.5-11.0)
[2016-10-20 07:00] LABS: Mean Corpuscular Hemoglobin 25 pg (28-32)
[2016-10-20 07:19] LABS: Anion Gap 19 mmol/L; BUN/Creatinine Ratio 13.33; Blood Urea Nitrogen 12 mg/dL (7-17); Calcium 8.4 mg/dL (8.4-10.2); Carbon Dioxide 20 mmol/L (22-30); Chloride 108.1 mmol/L (98-107); Glucose 82 mg/dL (65-100); Potassium 4.1 mmol/L (3.6-5.0); Sodium 143 mmol/L (137-145)
[2016-10-20 08:33] VITALS: BP 122/72
--- NOTE | 2016-10-20 08:44 | Discharge Summary ---
Providers - Providers Date of Admission: 10/19/16 01:50 Date of discharge: 10/20/16 Attending physician: AVIVA BRAVO 10/19/16 09:55 Consult to Physician [CONS] Routine Consulting Provider: WILLIAM SEARS Reason For Exam: IUD through myometrium, pt known to you Place consult to:: DR. FIELD Notified:: OFFICE Phone number called:: [phone] Was contact made?: Yes If yes, spoke with:: NURSE OTILIA SCHAEFFER Time called:: 11:28 Comment:: LAURY SPOKE WITH NURSE 10/19/16 10:03 Consult to Physician [CONS] Routine Consulting Provider: BENITO MICHELE Reason For Exam: ?Colitis Place consult to:: Forrest Michele MD Notified:: KALIE Phone number called:: INHOUSE Was contact made?: Yes If yes, spoke with:: KALIE Time called:: 11:00 Comment:: LAURY CANALES Primary care physician: OPHTHALMOLOGY SURGICAL TECHNICIAN Hospitalization Condition: Stable Hospital course: Patient is 31-year-old woman who presented with epigastric abdominal pain with nausea and vomiting. CT abdomen and pelvis with contrast shows fluid in the colon may be infectious or inflammatory in etiology, no abscess formation. A component of the patient's IUD extends through the myometrium to the areas of the uterus, which may be clinically significant in the settings of pelvic pain and/or at the time of removal. Chest x-ray negative for acute findings. 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 -UTI: Order urine culture, antibiotics -Morbid obesity BMI 40.7: Lifestyle modification discussed -DVT prophylaxis: SCDs and added subcutaneous heparin 10/19/16: per GI, "pt seen and examined, chart reviewed, consult below reviewed - pt presents 2 days abdominal pain with nausea, vomiting after burger meal with ct showing colitis vss p.e.: nad abd: benign Plan: wll review ct scan - clear liquid diet, advance as tolerated - other management as below - i tolerating po in am ok to d/c - will follow" per preschool aide: "Contacted to evaluate patient for abdominal pain. Findings of a suspected embedded IUD on CT scan. Patient denies any abnormal vaginal bleeding or discharge. Her IUD has been in place for a year without complications. She describes epigastric symptoms. Patient's symptoms likely not related to her IUD. Patient can followup in the office as needed." Disposition: DISCHARGED TO HOME OR SELFCARE Time spent for discharge: 32 minutes Core Measure Documentation - Palliative Care Palliative Care/ Comfort Measures: Not Applicable - Core Measures Any of the following diagnoses?: none - VTE Discharge Requirements Deep Vein Thrombosis/Pulmonary Embolism Present on Admission: No Has pt received <5 days of overlap therapy or INR<2.0: No Anticoagulant overlap therapy prescribed at discharge: No Contraindication No Overlap Therapy order at DC: Not Indicated Exam - Physical Exam Narrative exam: GEN: WDWN, NAD, AWAKE, ALERT, ORIENTATED 3 BMI 40.7 HEENT: NCAT, PERRL, EOMI, OP CLEAR NECK: SUPPLE, NO THYROMEGALY, NO JVD, NO LAD CVS: RRR, NORMAL S1S2 LUNGS/CHEST: CTA B, NORMAL CHEST EXPANSION B, GOOD AIR ENTRY B ABD: SOFT, EPIGASTRIC TENDERNESS, NONDISTENDED GBS, NO REBOUND OR GUARDING EXT/SKIN: NO SIGNIFICANT EDEMA OR RASH MSK: FROM X 4 EXTREMITIES NEURO: CN 2-12 GROSSLY INTACT, NO FOCAL DEFICITS PSY: CALM - Constitutional Vitals: Temp Pulse Resp BP Pulse Ox 98.8 F 61 20 122/72 100 10/20/16 07:00 10/20/16 07:00 10/20/16 07:00 10/20/16 07:00 10/20/16 07:00 Plan Activity: other (no strenous activites until cleared by PCP. ) Diet: clear liquids, advance as tolerated Follow up with: PRIMARY CARE, [Primary Care Provider] - 3-5 Days BENITO MICHELE MD [Staff Physician] - 7 Days WILLIAM SEARS MD [Staff Physician] - 7 Days Prescriptions: Ciprofloxacin HCl [Ciprofloxacin TAB] 500 mg PO BID #10 tablet metroNIDAZOLE [Flagyl] 500 mg PO TID #15 tablet Pantoprazole [Protonix TAB] 40 mg PO QDAY #5 tablet
[2016-10-20] MEDS: PROTONIX PO SCH (09:33)
[2016-10-20] MEDS: COLACE PO SCH (09:33)
[2016-10-20] MEDS: PEPCID PO SCH (09:33)
[2016-10-20] MEDS: LEVAQUIN 750MG/150ML 750 MG/150 ML BAG IV SCH (09:34)
[2016-10-20] MEDS ORDERED: HEPARIN SUB-Q SCH (22:00)
== END 2016-10-20 11:55 | disposition home or self-care (01) | DRG 392 ==
LOC: ED 22:12 → 3A 10-19 01:50
PROVIDERS: ADMIT Internal Medicine; ATTEND Internal Medicine
DX: K52.9 Noninfective gastroenteritis and colitis, unspecified (principal); N39.0 Urinary tract infection, site not specified; Z68.41 Body mass index [BMI] 40.0-44.9, adult; T83.89XA Other specified complication of genitourinary prosthetic devices, implants and grafts, initial encounter; K29.70 Gastritis, unspecified, without bleeding; E87.6 Hypokalemia; E83.42 Hypomagnesemia; Z91.040 Latex allergy status; Z87.442 Personal history of urinary calculi; E87.8 Other disorders of electrolyte and fluid balance, not elsewhere classified; E66.01 Morbid (severe) obesity due to excess calories
CPT/HCPCS: 36415; 71010; 74177; 80048; 80053; 81001; 82140; 83690; 83735; 84703; 85007; 85025; 85027; 87045; 87086; 87177; 87210; 87591; 96365; 96366; 96368; 96375; 96376; J1170; J1956; J2270; J2405; J2543; J2765; J3475; J7030; Q9967

== ENCOUNTER 2017-07-31 09:13 | Emergency (ER) | payer SELFPAY | END 2017-07-31 10:45 | disposition left against medical advice (07) | LOC: ED 09:13 | DX: R10.9 Unspecified abdominal pain (principal); Z53.21 Procedure and treatment not carried out due to patient leaving prior to being seen by health care provider ==

== ENCOUNTER 2017-09-02 16:10 | Emergency (ER) | payer MEDICAID ==
[2017-09-02 18:43] LABS: Basophils % (Auto) 0.4 % (0.0-1.8); Eosinophils % (Auto) 0.2 % (0.0-4.3); Hematocrit 38.2 % (30.3-42.9); Hemoglobin 13.6 gm/dl (10.1-14.3); Mean Corpuscular HGB Conc 36 % (30-34); Mean Corpuscular Hemoglobin 30 pg (28-32); Mean Corpuscular Volume 83 fl (79-97); Monocytes # (Auto) 0.5 K/mm3 (0.0-0.8); Monocytes % (Auto) 5.3 % (0.0-7.3); Platelet Count 268 K/mm3 (140-440); Red Blood Count 4.58 M/mm3 (3.65-5.03); Red Cell Distribution Width 13.8 % (13.2-15.2)
[2017-09-02 19:02] LABS: Alanine Aminotransferase 6 units/L (7-56); Albumin 3.9 g/dL (3.9-5); BUN/Creatinine Ratio 10; Blood Urea Nitrogen 7 mg/dL (7-17); Calcium 9.5 mg/dL (8.4-10.2); Hemolysis Index 6; Lipase 37 units/L (13-60)
[2017-09-02] MEDS ORDERED: ZOFRAN ODT ONE (19:46)
[2017-09-02] MEDS ORDERED: ZOFRAN ODT PO ONE (19:49)
[2017-09-02] MEDS ORDERED: NACL 0.9% 1000 ML 1,000 ML IV ONE (20:00)
[2017-09-02] MEDS ORDERED: BENADRYL IV ONE (20:07)
[2017-09-02] MEDS ORDERED: MORPHINE IV ONE (20:07)
--- NOTE | 2017-09-02 20:15 | Emergency Department Report ---
Blank Doc - Documentation Documentation: 32-year-old female with a past medical history of kidney stones in the past presents with a therapeutic (2 living children) approximately 10 weeks . Complaining of nausea, vomiting, frontal headache, and abdominal pain 2 weeks. Pain is in upper and lower abdomen. Headache is frontal and exacerbated by light. She denies neck pain, fever, melena, hematochezia, hematemesis, or dysuria. 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 CBC, CMP, lipase,hcg reviewed UA collection pending Patient received Zofran ODT prior to evaluation Additional orders CT head, ultrasound OB, ultrasound IV Reglan, Benadryl, D5 NS, morphine
--- NOTE | 2017-09-02 20:36 | Emergency Department Report ---
ED Headache HPI - General Chief Complaint: Headache Stated Complaint: HEADACHE/PREG Time Seen by Provider: 09/02/17 20:34 Source: patient, family - History of Present Illness Initial Comments: 32-year-old female with a past medical history of kidney stones in the past presents with a therapeutic (2 living children) approximately 10 weeks . Complaining of nausea, vomiting, frontal headache, and abdominal pain 2 weeks. Pain is in upper and lower abdomen. Headache is frontal and exacerbated by light. She denies neck pain, fever, melena, hematochezia, hematemesis, or dysuria. Patient was seen by her CUSTOMER CARE ASSISTANT at my OB/ HAIR ROOTING MACHINE OPERATOR who is Dr. Michele and she had ultrasound done and said everything was fine. She says this was done last Saturday. Patient has a history of kidney stones 3 years ago., Hemorrhoids which she had removed and she has a history of migraine headache. Patient denies any vaginal bleeding or discharge. She denies any problems related to her . Denies any fever or chills. Headache is 8 out of 10 and achy, abdominal pain is 4 out of 10 and crampy. Timing/Duration: waxing and waning, other (2 weeks) Quality: mild, achy, other (abdominal pain is crampy and 8/10) Head Injury Location: frontal Recent Head Trauma: chronic headaches (patient with history of migraines) Modifying Factors: improves with: exposure to light, immobilization, movement, rest Associated Symptoms: nausea/vomiting, other (abdominal pain which is cramping.) . denies: confusion, fatigue, facial pain, fever/chills, flushing, loss of consciousness, nasal congestion, nasal drainage, numbness in legs/feet, rash, seizures, sinus infection, stiff neck, vision changes, weakness Allergies/Adverse Reactions: Allergies latex Allergy (Verified 04/01/15 10:54) BLISTERS Home Medications: Ambulatory Orders Acetaminophen [Acetaminophen TAB] 650 mg PO Q4H PRN #30 tablet 10/20/16 Ciprofloxacin HCl [Ciprofloxacin TAB] 500 mg PO BID #10 tablet 10/20/16 Pantoprazole [Protonix TAB] 40 mg PO QDAY #5 tablet 10/20/16 metroNIDAZOLE [Flagyl] 500 mg PO TID #15 tablet 10/20/16 Ondansetron [Zofran Odt] 4 mg PO Q8H PRN #12 tab.rapdis 09/03/17 ED Review of Systems ROS: Stated complaint: HEADACHE/PREG Other details as noted in HPI Comment: All other systems reviewed and negative Constitutional: no symptoms reported Eyes: other (sensitivity to light). denies: eye pain, eye discharge ENT: denies: throat pain, congestion Respiratory: no symptoms reported Cardiovascular: denies: chest pain, palpitations, dyspnea on exertion, edema, syncope, paroxysmal nocturnal dyspnea Gastrointestinal: abdominal pain, nausea. denies: diarrhea, constipation, hematemesis, melena, hematochezia Genitourinary: other ( at 10-1/2 weeks). denies: urgency, dysuria, frequency, hematuria, discharge Skin: denies: rash Neurological: headache. denies: weakness, numbness, paresthesias, confusion, abnormal gait, vertigo ED Past Medical Hx - Past Medical History Previous Medical History?: Yes Hx Hypertension: No Hx Congestive Heart Failure: No Hx Diabetes: No Hx Deep Vein Thrombosis: No Hx Renal Disease: No Hx Sickle Cell Disease: No Hx Headaches / Migraines: Yes Hx Seizures: No Hx Kidney Stones: Yes (3 YRS AGO) Hx Asthma: No Hx COPD: No Hx HIV: No Additional medical history: hemorrhoids - Surgical History Past Surgical History?: Yes Additional Surgical History: hemorrhoids removed - Family History Family history: no significant - Social History Smoking Status: Never Smoker Substance Use Type: None - Medications Home Medications: Home Medications Medication Instructions Recorded Confirmed Last Taken Type Acetaminophen [Acetaminophen TAB] 650 mg PO Q4H PRN #30 tablet 10/20/16 Unknown Rx Ciprofloxacin HCl [Ciprofloxacin 500 mg PO BID #10 tablet 10/20/16 Unknown Rx TAB] Pantoprazole [Protonix TAB] 40 mg PO QDAY #5 tablet 10/20/16 Unknown Rx metroNIDAZOLE [Flagyl] 500 mg PO TID #15 tablet 10/20/16 Unknown Rx Ondansetron [Zofran Odt] 4 mg PO Q8H PRN #12 tab.rapdis 09/03/17 Unknown Rx ED Physical Exam - General Limitations: No Limitations General appearance: alert, in no apparent distress - Head Head exam: Present: atraumatic, normocephalic, normal inspection, other (normal exam) - Eye Eye exam: Present: normal appearance, PERRL, EOMI. Absent: nystagmus, periorbital swelling, periorbital tenderness Pupils: Present: normal accommodation - ENT ENT exam: Present: normal exam, mucous membranes moist, TM's normal bilaterally , normal external ear exam - Neck Neck exam: Present: normal inspection, full ROM, other (no C-spine tenderness). Absent: tenderness, meningismus, lymphadenopathy, thyromegaly - Respiratory Respiratory exam: Present: normal lung sounds bilaterally. Absent: respiratory distress, chest wall tenderness - Cardiovascular Cardiovascular Exam: Present: regular rate, normal rhythm, normal heart sounds - GI/Abdominal GI/Abdominal exam: Present: soft, normal bowel sounds. Absent: distended, tenderness, guarding, rebound, rigid, organomegaly, mass, bruit, pulsatile mass , hernia - Extremities Exam Extremities exam: Present: normal inspection, full ROM, normal capillary refill , other (no clubbing, cyanosis or edema. +2 pulses all extremities and no neurovascular compromise.). Absent: tenderness, pedal edema, joint swelling, calf tenderness - Back Exam Back exam: Present: normal inspection, full ROM - Neurological Exam Neurological exam: Present: alert, oriented X3, normal gait, reflexes normal. Absent: motor sensory deficit - Expanded Neurological Exam Expanded Neurological exam: Absent: innattentive, memory loss-remote event, memory loss- recent event, ataxia, receptive aphasia, expressive aphasia, total aphasia, tremor, protecting the airway Patient oriented to: Present: person, place, time Speech: Present: fluid speech Cranial nerves: EOM's Intact: Normal, Gag Reflex: Normal, Tongue Deviation: Normal, Nystagmus: Normal, Facial Sensation: Normal Cerebellar function: Romberg: Normal Upper motor neuron: Pronator Drift: Normal Sensory exam: Upper Extremity Light Touch: Normal, Upper Extremity Temperature: Normal, UE 2 Point Discrimination: Normal, Lower Extremity Light Touch: Normal, Lower Extremity Temperature: Normal, LE 2 Point Discrimination: Normal Motor strength exam: RUE: 5, LUE: 5, RLE: 5, LLE: 5 DTR: bicep (R): 2+, bicep (L): 2+, tricep (R): 2+, tricep (L): 2+, knee (R): 2+ , knee (L): 2+, ankle (R): 2+, ankle (L): 2+ Best Eye Response ([place]): (4) open spontaneously Best Motor Response (Christina): (6) obeys commands Best Verbal Response (Christina): (5) oriented [place] Total: 15 - Psychiatric Psychiatric exam: Present: normal affect, normal mood - Skin Skin exam: Present: warm, dry, intact, normal color. Absent: rash ED Course Vital Signs 09/02/17 09/03/17 16:34 01:26 Temperature 98.9 F 99.2 F Pulse Rate 92 H 75 Respiratory 20 17 Rate Blood Pressure 113/71 Blood Pressure 130/80 [Right] O2 Sat by Pulse 100 100 Oximetry - Reevaluation(s) Reevaluation #1: 09/02/17 21:00 Patient said that her headache is better after medicated with pain medicine. She received 1 L IV . She is no longer nauseous and not experienced any abdominal pain. Lab work is stable and awaiting urinalysis. The skin shows no evidence of acute intracranial abnormalities. Patient able to ambulate and her neurological exam is normal. awaiting ultrasound [id number]/16/18 21:51 Reevaluation #2: 09/03/17 00:36 Patient is stable, her pain is controlled. She is tolerating oral liquids and emergency room without any difficulties. Denies headache, abdominal pain, back pain, dizziness. She is able to ambulate without any difficulties. I decided to discontinue second liter of D5 IV fluid patient able to tolerate oral liquids and she has no signs of ketones in her urine with urine of 50 glucose. ED Medical Decision Making - Lab Data Result diagrams: 09/02/17 18:29 09/02/17 18:29 Lab Results 09/02/17 09/02/17 09/02/17 Range/Units 18:29 18:29 18:29 WBC 8.6 (4.5-11.0) K/mm3 RBC 4.58 (3.65-5.03) M/mm3 Hgb 13.6 (10.1-14.3) gm/dl Hct 38.2 (30.3-42.9) % MCV 83 (79-97) fl MCH 30 (28-32) pg MCHC 36 H (30-34) % RDW 13.8 (13.2-15.2) % Plt Count 268 (140-440) K/mm3 Lymph % (Auto) 23.0 (13.4-35.0) % [place] % (Auto) 5.3 (0.0-7.3) % Eos % (Auto) 0.2 (0.0-4.3) % Baso % (Auto) 0.4 (0.0-1.8) % Lymph # 2.0 (1.2-5.4) K/mm3 [place] # 0.5 (0.0-0.8) K/mm3 Eos # 0.0 (0.0-0.4) K/mm3 Baso # 0.0 (0.0-0.1) K/mm3 Seg Neutrophils % 71.1 H (40.0-70.0) % Seg Neutrophils # 6.1 (1.8-7.7) K/mm3 Sodium 139 (137-145) mmol/L Potassium 4.0 (3.6-5.0) mmol/L Chloride 101.9 (98-107) mmol/L Carbon Dioxide 22 (22-30) mmol/L Anion Gap 19 mmol/L BUN 7 (7-17) mg/dL Creatinine 0.7 (0.7-1.2) mg/dL Estimated GFR > 60 ml/min BUN/Creatinine Ratio 10 % Glucose 85 (65-100) mg/dL Calcium 9.5 (8.4-10.2) mg/dL Total Bilirubin 0.50 (0.1-1.2) mg/dL AST 8 (5-40) units/L ALT 6 L (7-56) units/L Alkaline Phosphatase 58 (35-129) units/L Total Protein 7.1 (6.3-8.2) g/dL Albumin 3.9 (3.9-5) g/dL Albumin/Globulin Ratio 1.2 % Lipase 37 (13-60) units/L HCG, Quant [id number] H (0-4) mIU/mL Urine Color (Yellow) Urine Turbidity (Clear) Urine pH (5.0-7.0) Ur Specific [place] (1.003-1.030) Urine Protein (Negative) mg/dL Urine Glucose (UA) (Negative) mg/dL Urine Ketones (Negative) mg/dL Urine Blood (Negative) Urine Nitrite (Negative) Urine Bilirubin (Negative) Urine Urobilinogen (<2.0) mg/dL Ur Leukocyte Esterase (Negative) Urine WBC (Auto) (0.0-6.0) /HPF Urine RBC (Auto) (0.0-6.0) /HPF U Epithel Cells (Auto) (0-13.0) /HPF Urine Mucus /HPF 09/02/17 Range/Units 23:23 WBC (4.5-11.0) K/mm3 RBC (3.65-5.03) M/mm3 Hgb (10.1-14.3) gm/dl Hct (30.3-42.9) % MCV (79-97) fl MCH (28-32) pg MCHC (30-34) % RDW (13.2-15.2) % Plt Count (140-440) K/mm3 Lymph % (Auto) (13.4-35.0) % [place] % (Auto) (0.0-7.3) % Eos % (Auto) (0.0-4.3) % Baso % (Auto) (0.0-1.8) % Lymph # (1.2-5.4) K/mm3 [place] # (0.0-0.8) K/mm3 Eos # (0.0-0.4) K/mm3 Baso # (0.0-0.1) K/mm3 Seg Neutrophils % (40.0-70.0) % Seg Neutrophils # (1.8-7.7) K/mm3 Sodium (137-145) mmol/L Potassium (3.6-5.0) mmol/L Chloride (98-107) mmol/L Carbon Dioxide (22-30) mmol/L Anion Gap mmol/L BUN (7-17) mg/dL Creatinine (0.7-1.2) mg/dL Estimated GFR ml/min BUN/Creatinine Ratio % Glucose (65-100) mg/dL Calcium (8.4-10.2) mg/dL Total Bilirubin (0.1-1.2) mg/dL AST (5-40) units/L ALT (7-56) units/L Alkaline Phosphatase (35-129) units/L Total Protein (6.3-8.2) g/dL Albumin (3.9-5) g/dL Albumin/Globulin Ratio % Lipase (13-60) units/L HCG, Quant (0-4) mIU/mL Urine Color Giulia (Yellow) Urine Turbidity Clear (Clear) Urine pH 6.0 (5.0-7.0) Ur Specific [place] 1.030 (1.003-1.030) Urine Protein 30 mg/dl (Negative) mg/dL Urine Glucose (UA) 50 (Negative) mg/dL Urine Ketones Neg (Negative) mg/dL Urine Blood Neg (Negative) Urine Nitrite Neg (Negative) Urine Bilirubin Neg (Negative) Urine Urobilinogen 4.0 (<2.0) mg/dL Ur Leukocyte Esterase Neg (Negative) Urine WBC (Auto) 4.0 (0.0-6.0) /HPF Urine RBC (Auto) 3.0 (0.0-6.0) /HPF U Epithel Cells (Auto) 11.0 (0-13.0) /HPF Urine Mucus 2+ /HPF - Radiology Data Radiology results: report reviewed Ultrasound OB less than 14 weeks reveal patient with single live intrauterine gestation at approximately 12 weeks. EDC by ultrasound 03/17/2018. Cervix is normal, gestational sac is normal, right ovary not visualized, left ovary normal. Yolk sac not visualized. Cardiac activity, 177 bpm. OB transvaginal ultrasound reveals same as above Abdominal ultrasound complete reveals patient and with 3 mm echogenic structure in the gallbladder lumen maybe a small non-shadowing gallstone. No sonographic evidence of acute cholecystitis. No biliary ductal dilatation. Right and left kidney normal without any evidence of hydronephrosis or renal calculi or mass. Intrahepatic bile duct normal caliber, extrahepatic bile duct stable. Liver is normal in size and echotexture with no evidence of cystic or solid Meade's lesion. Spleen is normal. No intraperitoneal fluid. Pancreas was not fully visualized. Aorta visualized portion is normal. IVC visualized portion appears normal. - Medical Decision Making ED course: Patient came to the emergency room with her significant other reported issues had migraine headache for 2 weeks with nausea and vomiting and that she is tender and a half weeks . Patient and his been followed by my CUSTOMER CARE ASSISTANT and she seen Dr. Michele and saw Dr. Michele less than 2 weeks ago and had ultrasound which the report were normal. Patient has a history of migraine headache and have similar symptoms when she has fair. Abdominal exam is normal. She had CT scan of the head which revealed no acute intracranial processes. She also had ultrasound of the abdomen complete to assess for kidney stones and kidneys were normal with no renal calculi or hydronephrosis. She does have a 3 mm echogenic structure in the gallbladder which may be a small gallstone but no dense of cholecystitis or gallbladder dilatation. She also had OB transvaginal and OB ultrasound less than 14 weeks. This reveals patient with a live intrauterine gestation at approximately 12 weeks 0 days. cardiac activity is at 177 bpm with no suggestion of any placental abnormality. Please refer to radiology section for complete report on ultrasounds and CT scan of the head. Patient had positive hormone that is equivalent with age. CBC and chemistry were stable, urinalysis stable except she has 50 glucose in her urine which she said she's never had glucose in urine and she has 30 protein when comparing to other lab work she's had proteinuria urine at 30 and she says she's been told that before but did not give a reason. Patient is not having any swelling to her legs. She is not having any difficulty breathing or any chest pain. No signs of dehydration and urine. She received D5 normal saline at 1 L via IV. She did not receive second liter. She is able to tolerate oral liquids in emergency room without any problems. She says she felt better. She receive Benadryl 50 mg IV, Reglan 10 mg IV and morphine 4 mg IV which relieved her headache and abdominal pain. Patient also receives Zofran 4 mg ODT and she is not having any nausea or vomiting episode. Patient ambulated in an improvement to bathroom without any difficulties. I explained all ultrasound, CT scan and lab results with patient and she voiced understanding. That she voiced understanding diagnosis treatment plan and need to follow-up. Patient is stable and discharged home with her significant other with prescription for Zofran. I discussed with her that she needs to call her CUSTOMER CARE ASSISTANT tomorrow and schedule an appointment for follow-up visits under 18. I also discussed with her that she has gallstone and need to follow up with yarn mercerizer operator helper but she could discuss this with her CUSTOMER CARE ASSISTANT and also to discuss the fact that she has some glucose in her urine and although her blood glucose was stable, she'll need to have fasting blood glucose. Critical care attestation.: If time is entered above; I have spent that time in minutes in the direct care of this critically ill patient, excluding procedure time. ED Disposition Clinical Impression: Glucosuria, Threatened miscarriage in early Protein in urine Qualifiers: Proteinuria type: unspecified Qualified Code(s): R80.9 - Proteinuria, unspecified Abdominal pain during Qualifiers: Trimester: first trimester Qualified Code(s): O26.891 - Other specified related conditions, first trimester Migraine headache without aura Qualifiers: Status migrainosus presence: without status migrainosus Intractability: not intractable Qualified Code(s): G43.009 - Migraine without aura, not intractable , without status migrainosus Nausea & vomiting Qualifiers: Vomiting type: unspecified Vomiting Intractability: non-intractable Qualified Code(s): R11.2 - Nausea with vomiting, unspecified Gallstone Qualifiers: Cholecystitis presence: without cholecystitis Biliary obstruction: without biliary obstruction Qualified Code(s): K80.20 - Calculus of gallbladder without cholecystitis without obstruction Disposition: - TO HOME OR SELFCARE Is pt being admited?: No Does the pt Need Aspirin: No Condition: Stable Instructions: Threatened Miscarriage (ED), Biliary Colic (ED), Migraine Headache (ED), Acute Nausea and Vomiting (ED), Abdominal Pain in (ED) Additional Instructions: Please call your CUSTOMER CARE ASSISTANT in the morning and let them know that you were here and had multiple tests done for abdominal pain, headache and nausea or vomiting. You have small amount of glucose and U urine and will need to follow-up with OB/ HAIR ROOTING MACHINE OPERATOR regarding this finding. you had some protein in urine but this was noted in previous urinalysis that you need to let your CUSTOMER CARE ASSISTANT . If you're abdominal pain return, nausea and vomiting, fever and/or chills. Vaginal bleeding, urinary burning frequency or urgency, please return to the emergency room. You will need follow-up with neurologist for chronic migraine headache You will need to follow-up with yarn mercerizer operator helper for gallstone Please drink plenty of water and avoid carbonated beverages. Takes Zofran for nausea and/or vomiting Your CUSTOMER CARE ASSISTANT will direct U on what he can take for U headache. Prescriptions: Ondansetron [Zofran Odt] 4 mg PO Q8H PRN #12 tab.rapdis PRN Reason: Nausea And Vomiting Referrals: PRIMARY CARE, [Primary Care Provider] - 2-3 Days [facility] [Provider [facility]] - 09/04/17 ANDREW PANIAGUA MD [Staff Physician] - 2-3 Days [facility] [Provider Group] - 2-3 Days Forms: Accompanied Note, Work/School Release Form(ED)
[2017-09-02] MEDS: REGLAN IV ONE (20:44)
--- NOTE | 2017-09-02 20:44 | Cat Scan Report ---
FINAL REPORT PROCEDURE: CT HEAD/BRAIN WO CON TECHNIQUE: Computerized tomography of the head was performed without contrast material. HISTORY: frontal pham, , n,v COMPARISON: No prior studies are available for comparison. FINDINGS: No CT evidence of intracranial mass, hemorrhage, acute territorial infarction, or hydrocephalus. Intracranial arteries are symmetric in density. Calvarium is intact. Visualized paranasal sinuses and mastoids are aerated. IMPRESSION: No CT evidence of acute intracranial abnormality
[2017-09-02] MEDS ORDERED: D5NS 1,000 ML IV SCH ×2 (21:00)
--- NOTE | 2017-09-02 23:09 | Ultrasound Report ---
FINAL REPORT PROCEDURE: US OB < = 14 WEEKS FETUS TECHNIQUE: Real-time transabdominal and transvaginal sonography of the uterus, placenta, amniotic fluid, adnexa, and fetus was performed with image documentation. Measurements were obtained to determine age/size. M-mode Doppler was used to document heartbeat. CPT 46301 and 44354 HISTORY: abd pain n,v COMPARISON: No prior studies are available for comparison. FINDINGS: ADDITIONAL GESTATION: None. CRL: 54 mm, which corresponds to a gestational age of: 12 weeks, 0 days. Yolk Sac: Not visualized Embryonic Cardiac Activity: 177 beats per minute Gestational Sac: Normal. Cervix: Normal. Right Ovary: Not well-visualized Left Ovary: Normal. Estimated delivery date: 03/17/2018 IMPRESSION: 1. Single live intrauterine gestation at approximately 12 weeks 0 days 2. EDC by US 03/17/2018 3. Complete anatomic survey at 18-20 weeks suggested.
--- NOTE | 2017-09-02 23:12 | Ultrasound Report ---
FINAL REPORT PROCEDURE: US OB < = 14 WEEKS FETUS TECHNIQUE: Real-time transabdominal and transvaginal sonography of the uterus, placenta, amniotic fluid, adnexa, and fetus was performed with image documentation. Measurements were obtained to determine age/size. M-mode Doppler was used to document heartbeat. CPT 79056 and 54455 HISTORY: abd pain n,v COMPARISON: No prior studies are available for comparison. FINDINGS: ADDITIONAL GESTATION: None. CRL: 54 mm, which corresponds to a gestational age of: 12 weeks, 0 days. Yolk Sac: Not visualized Embryonic Cardiac Activity: 177 beats per minute Gestational Sac: Normal. Cervix: Normal. Right Ovary: Not well-visualized Left Ovary: Normal. Estimated delivery date: 03/17/2018 IMPRESSION: 1. Single live intrauterine gestation at approximately 12 weeks 0 days 2. EDC by US 03/17/2018 3. Complete anatomic survey at 18-20 weeks suggested. PROCEDURE: TECHNIQUE: HISTORY: COMPARISON: FINDINGS: IMPRESSION:
--- NOTE | 2017-09-02 23:15 | Ultrasound Report ---
FINAL REPORT PROCEDURE: US ABDOMEN COMPLETE TECHNIQUE: Real-time sonography in multiple planes of the abdomen was performed with image documentation. CPT 40437 HISTORY: abd pain n,v COMPARISON: No prior studies are available for comparison. FINDINGS: Liver: Normal size and echotexture with no evidence of cystic or solid mass lesions. Gallbladder: There is a 3 millimeter echogenic structure in the gallbladder lumen, possibly a small nonshadowing gallstone. No gallbladder wall thickening. Intrahepatic bile ducts: Normal caliber . Extrahepatic bile ducts: Common bile duct measures 3 millimeters in caliber. Pancreas: Not fully visualized. Aorta: Visualized portions appear normal. IVC: Visualized portions appear normal. RIGHT kidney: Normal echotexture. No focal renal mass, calculus, or hydronephrosis. Length: 9.8cm. LEFT kidney: Normal echotexture. No focal renal mass, calculus, or hydronephrosis . Length: 11.1cm. Spleen: Normal size and echotexture. No focal lesions. Intraperitoneal fluid: None . Other: None . IMPRESSION: 3 millimeter echogenic structure in the gallbladder lumen may be a small nonshadowing gallstone. No sonographic evidence of acute cholecystitis. No biliary ductal dilatation..
[2017-09-02 23:44] LABS: Bilirubin,Urine NEG (Negative); Blood,Urine NEG (Negative); Color,Urine Amber (Yellow); Mucus,Urine 2+ /HPF
[2017-09-03 01:28] VITALS: BP 130/80
== END 2017-09-03 01:26 | disposition home or self-care (01) ==
LOC: ED 16:10
DX: O20.0 Threatened abortion (principal); O26.891 Other specified pregnancy related conditions, first trimester; O99.611 Diseases of the digestive system complicating pregnancy, first trimester; Z3A.10 10 weeks gestation of pregnancy; R81 Glycosuria; R80.9 Proteinuria, unspecified; G43.909 Migraine, unspecified, not intractable, without status migrainosus; O21.0 Mild hyperemesis gravidarum; K80.20 Calculus of gallbladder without cholecystitis without obstruction
CPT/HCPCS: 36415; 70450; 76700; 76801; 76817; 80053; 81001; 83690; 84702; 85025; 96361; 96374; 96375; 99284; J1200; J2270; J2765; J7042; Q0162

== ENCOUNTER 2018-02-20 12:13 | Outpatient (CLI) | payer MEDICAID ==
[2018-02-20] MEDS ORDERED: TYLENOL PO ONE (13:09)
[2018-02-20 13:37] LABS: Hematocrit 32.8 % (30.3-42.9); Hemoglobin 11.1 gm/dl (10.1-14.3); Mean Corpuscular HGB Conc 34 % (30-34); Mean Corpuscular Hemoglobin 28 pg (28-32); Mean Corpuscular Volume 82 fl (79-97); Platelet Count 228 K/mm3 (140-440); Red Blood Count 3.99 M/mm3 (3.65-5.03); Red Cell Distribution Width 15.1 % (13.2-15.2)
[2018-02-20 13:40] LABS: Bilirubin,Urine NEG (Negative); Blood,Urine NEG (Negative); Calcium Oxalate Crystals,Urine FEW; Color,Urine Yellow (Yellow); Mucus,Urine FEW /HPF; Urobilinogen,Urine < 2.0 mg/dL (<2.0)
[2018-02-20 14:17] LABS: Alanine Aminotransferase 9 units/L (7-56); Uric Acid 4.6 mg/dL (3.5-7.6)
--- NOTE | 2018-02-20 15:26 | Ultrasound Report ---
ULTRASOUND BIOPHYSICAL PROFILE: History: Elevated blood pressures Technique: Transabdominal ultrasound with Doppler interrogation. 2 - breathing movements 2 - movements 2 - posture and tone 2 - Qualitative amniotic fluid volume 8 - TOTAL SCORE OF POSSIBLE 8 Heart Rate (bpm) 161
--- NOTE | 2018-02-20 15:26 | Ultrasound Report ---
ULTRASOUND OB LIMITED History: Elevated blood pressures Technique: Transabdominal ultrasound with Doppler interrogation. Gestation: Single Position: Transverse with head to maternal right Amniotic Fluid: Normal AMINTA = 15.5 cm Heart Rate: 138 BPM
[2018-02-20 15:47] VITALS: BP 130/69
== END 2018-02-20 16:04 | disposition home or self-care (01) ==
LOC: TRG 12:13
PROVIDERS: ATTEND Obstetrics & Gynecology
DX: O47.03 False labor before 37 completed weeks of gestation, third trimester (principal); O99.213 Obesity complicating pregnancy, third trimester; Z3A.35 35 weeks gestation of pregnancy
CPT/HCPCS: 36415; 76815; 76819; 81001; 82565; 83615; 84450; 84460; 84550; 85027; 86850; 86900; 86901

== ENCOUNTER 2018-02-27 10:16 | Outpatient (CLI) | payer MEDICAID ==
[2018-02-27 11:14] LABS: Hematocrit 32.7 % (30.3-42.9); Hemoglobin 11.1 gm/dl (10.1-14.3); Mean Corpuscular HGB Conc 34 % (30-34); Mean Corpuscular Hemoglobin 28 pg (28-32); Mean Corpuscular Volume 82 fl (79-97); Platelet Count 225 K/mm3 (140-440); Red Blood Count 3.99 M/mm3 (3.65-5.03); Red Cell Distribution Width 14.8 % (13.2-15.2)
[2018-02-27 11:26] LABS: Bacteria,Urine 4+ /HPF (Negative); Bilirubin,Urine NEG (Negative); Blood,Urine NEG (Negative); Color,Urine Yellow (Yellow); Mucus,Urine 1+ /HPF; Urobilinogen,Urine < 2.0 mg/dL (<2.0)
[2018-02-27 11:33] LABS: Alanine Aminotransferase 13 units/L (7-56); Uric Acid 4.8 mg/dL (3.5-7.6)
[2018-02-27 12:11] VITALS: BP 118/60
--- NOTE | 2018-02-27 14:31 | Ultrasound Report ---
BIOPHYSICAL PROFILE: well-being. 2 - breathing movements 2 - movements 2 - posture and tone 2 - Qualitative amniotic fluid volume 8 - TOTAL SCORE OF POSSIBLE 8 Heart Rate (bpm) 153 Estimated gestational age of 36 weeks one day.
--- NOTE | 2018-02-27 14:42 | Ultrasound Report ---
LIMITED OB ULTRASOUND: AMINTA Gestation: Yusuf Position: Transverse, head to maternal left Amniotic Fluid: Normal volume Heart Rate: 145 BPM Estimated gestational age is 36 weeks one day.
== END 2018-02-27 13:37 | disposition home or self-care (01) ==
LOC: TRG 10:16
PROVIDERS: ATTEND Obstetrics & Gynecology
DX: O47.03 False labor before 37 completed weeks of gestation, third trimester (principal); Z3A.36 36 weeks gestation of pregnancy; Z91.040 Latex allergy status
CPT/HCPCS: 36415; 59025; 76815; 76819; 81001; 82565; 83615; 84450; 84460; 84550; 85027; 86850; 86900; 86901